=== PATIENT | male | born 1985 | race Caucasian/White ===

== ENCOUNTER 2017-07-29 19:19 | Emergency (ER) | payer OTHER ==
[2017-07-29 19:23] VITALS: BP 146/84
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
== END 2017-07-29 20:16 | disposition home or self-care (01) ==
LOC: ER 19:19
DX: S16.1XXA Strain of muscle, fascia and tendon at neck level, initial encounter (principal); R51 Headache; M54.5 Low back pain; M54.2 Cervicalgia; V43.52XA Car driver injured in collision with other type car in traffic accident, initial encounter
CPT/HCPCS: 99284

== ENCOUNTER 2019-09-24 11:50 | Emergency (ER) | payer OTHER ==
--- NOTE | 2019-09-24 13:01 | ER Document Report ---
ED Medical Screen (RME) - General Chief Complaint: Toothache Stated Complaint: TOOTHACHE Time Seen by Provider: 09/24/19 12:56 Mode of Arrival: Ambulatory Information source: Patient Notes: 34-year-old male with history of pericarditis presents emergency department with complaints of dental pain for the past 2 weeks. Patient also complains of subjective fevers and dizziness with blurred vision. Denies history of diabetes. Patient blood pressure little elevated. Denies vomiting diarrhea. I have greeted and performed a rapid initial assessment of this patient. A comprehensive ED assessment and evaluation of the patient, analysis of test results and completion of the medical decision making process will be conducted by additional ED providers. TRAVEL OUTSIDE OF THE [place] IN LAST 30 DAYS: No - Related Data Allergies/Adverse Reactions: No Known Allergies Allergy (Verified 09/24/19 12:50) Past Medical History Renal/ Medical History: Denies: Hx Peritoneal Dialysis Physical Exam - Vital signs Vitals: Temp Pulse Resp BP Pulse Ox 97.8 F 74 18 153/96 H 98 09/24/19 11:51 09/24/19 11:51 09/24/19 11:51 09/24/19 11:51 09/24/19 11:51 Course - Vital Signs Vital signs: Temp Pulse Resp BP Pulse Ox 97.8 F 74 18 153/96 H 98 09/24/19 11:51 09/24/19 11:51 09/24/19 11:51 09/24/19 11:51 09/24/19 11:51
[2019-09-24 14:00] LABS: ALBUMIN 4.9 g/dL (3.5-5.0); ALKALINE PHOSPHATASE 86 U/L (38-126); ANION GAP 11 (5-19); ASPARTATE AMINO TRANSFERASE 48 U/L (17-59); BILIRUBIN,DIRECT 0.3 mg/dL (0.0-0.4); BILIRUBIN,TOTAL 1.1 mg/dL (0.2-1.3); BLOOD UREA NITROGEN 11 mg/dL (7-20); CALCIUM 9.6 mg/dL (8.4-10.2); CARBON DIOXIDE 29 mmol/L (22-30); CHLORIDE 101 mmol/L (98-107); GLUCOSE 81 mg/dL (75-110); POTASSIUM 4.2 mmol/L (3.6-5.0); TOTAL PROTEIN 8.6 g/dL (6.3-8.2)
[2019-09-24 14:07] LABS: APPEARANCE,URINE CLEAR; BILIRUBIN,URINE NEGATIVE (NEGATIVE); COLOR,URINE YELLOW; GLUCOSE, URINE NEGATIVE (NEGATIVE); KETONES,URINE NEGATIVE (NEGATIVE); LEUKOCYTE ESTERASE,URINE NEGATIVE (NEGATIVE); NITRITE,URINE NEGATIVE (NEGATIVE); PROTEIN,URINE NEGATIVE (NEGATIVE); URINE SPECIFIC GRAVITY 1.011
[2019-09-24 14:23] LABS: ABSOLUTE EOSINOPHILS # (AUTO) 0.1 10^3/uL (0.0-0.6); ABSOLUTE LYMPHOCYTES (AUTO) 1.5 10^3/uL (0.5-4.7); ABSOLUTE MONOCYTES (AUTO) 0.6 10^3/uL (0.1-1.4); ABSOLUTE NEUT (AUTO) 4.8 10^3/uL (1.7-8.2); BASOPHILS % (AUTO) 0.3 % (0-2); EOSINOPHILS % (AUTO) 1.5 % (0-6); HEMATOCRIT 48.3 % (37.9-51.0); LYMPHOCYTES % (AUTO) 21.8 % (13-45); MEAN CORPUSCULAR HEMOGLOBIN 31.6 pg (27.0-33.4); MEAN CORPUSCULAR HGB CONC 35.2 g/dL (32.0-36.0); MEAN CORPUSCULAR VOLUME 90 fl (80-97); PLATELET COUNT 222 10^3/uL (150-450); RED BLOOD COUNT 5.38 10^6/uL (4.35-5.55); SEGMENTED NEUTROPHILS % (AUTO) 68.4 % (42-78); TOTAL CELLS COUNTED % (AUTO) 100 %
[2019-09-24] MEDS ORDERED: CEFTRIAXONE INJ 1000 MG VIAL IM ONE (14:52)
[2019-09-24 15:21] VITALS: BP 144/90
--- NOTE | 2019-09-24 17:23 | ER Document Report ---
Entered by STEPHANIE GARCIA SCRIBE 09/24/19 1445 Acting as scribe for:BILL DOTSON MD ED General - General Chief Complaint: Dental Injury Stated Complaint: TOOTHACHE Time Seen by Provider: 09/24/19 12:56 Mode of Arrival: Ambulatory Information source: Patient Notes: This 34 year old male patient presents to the emergency department today with complaints of a broken tooth with associated pain/swelling for the past x2 weeks. Patient states he has been taking ibuprofen to help his fever, swelling, and tooth pain. Patient states he has been having problems focusing his left eye and this has caused dizziness and a headache. TRAVEL OUTSIDE OF THE [place] IN LAST 30 DAYS: No - Related Data Allergies/Adverse Reactions: No Known Allergies Allergy (Verified 09/24/19 12:50) Home Medications: motrin Past Medical History - General Information source: Patient - Social History Smoking Status: Never Smoker Cigarette use (# per day): No Chew tobacco use (# tins/day): No Frequency of alcohol use: None Drug Abuse: None Lives with: Family Family History: Reviewed & Not Pertinent Patient has suicidal ideation: No Patient has homicidal ideation: No - Past Medical History Cardiac Medical History: Reports: Hx Hypertension, Other - Pericarditis Review of Systems - Review of Systems Constitutional: See HPI, Fever - subjective EENT: See HPI, Dental problem, Other - Problem with focusing left eye Cardiovascular: See HPI, Dizziness Respiratory: No symptoms reported Gastrointestinal: No symptoms reported Genitourinary: No symptoms reported Male Genitourinary: No symptoms reported Musculoskeletal: No symptoms reported Skin: No symptoms reported Hematologic/Lymphatic: No symptoms reported Neurological/Psychological: No symptoms reported -: Yes All other systems reviewed and negative Physical Exam - Vital signs Vitals: Temp Pulse Resp BP Pulse Ox 97.8 F 74 18 153/96 H 98 09/24/19 11:51 09/24/19 11:51 09/24/19 11:51 09/24/19 11:51 09/24/19 11:51 - General General appearance: Appears well, Alert - HEENT Visual acuity- Right eye: 20/30 Visual acuity- Left eye: 20/50 Visual acuity- Both eyes: 20/40 Corrective lenses worn: No External canal: Other - left sided inflammation Tympanic membrane: Serous effusion - on the left Sinus: Frontal, Tenderness Mouth/Lips: Dental fracture - Tooth #16 is fractured, Other - Gingival hyperplasia - Respiratory Respiratory status: No respiratory distress Breath sounds: Normal - Cardiovascular Rhythm: Regular Heart sounds: Normal auscultation Murmur: No - Abdominal Inspection: Normal Distension: No distension - Extremities General upper extremity: Normal inspection. No: Edema General lower extremity: Normal inspection. No: Edema - Neurological Neuro grossly intact: Yes Cognition: Normal Orientation: AAOx4 - Psychological Associated symptoms: Normal affect, Normal mood - Skin Skin Temperature: Warm Skin Moisture: Dry Skin Color: Normal Course - Vital Signs Vital signs: Temp Pulse Resp BP Pulse Ox 98.2 F 66 18 144/90 H 99 09/24/19 15:20 09/24/19 15:20 09/24/19 15:20 09/24/19 15:20 09/24/19 15:20 - Laboratory Result Diagrams: 09/24/19 13:22 09/24/19 13:22 Laboratory results interpreted by me: 09/24/19 09/24/19 13:22 13:22 Total Protein 8.6 H Urine Urobilinogen 2.0 H - EKG Interpretation by Me Additional EKG results interpreted by me: 09/24/19 17:20 12-lead EKG done at 04/04/2011 today shows a normal sinus rhythm rate of [address]-T wave changes. Discharge - Discharge Clinical Impression: Dental caries, Toothache, Gingivitis, Elevated blood pressure reading in office without diagnosis of hypertension Sinusitis Qualifiers: Sinusitis location: maxillary Chronicity: acute Condition: Stable Disposition: HOME, SELF-CARE Instructions: [facility], Toothache (H) Additional Instructions: Sinusitis You have sinusitis, an infection of the sinus cavities of the face. The sinuses are air-filled chambers which open into the inside of the nose. Bacteria and pus fill a sinus, causing pain, drainage, and fever. Sinusitis is treated with antibiotics. Often, expectorants (to thin the sinus mucous) or decongestants (to reduce swelling) are prescribed as well. Healing requires seven to 10 days. Avoid chemical fumes, pollens, dusts, and smoke (especially cigarette smoke). Keep the air humidified in your bedroom and work area and take plenty of liquids by mouth. This condition can be serious if the infection spreads. If your symptoms worsen, or if you develop severe headache, high fever, stiff neck, or a rash, you must call the doctor or return for re-evaluation. Labyrinthitis Labyrinthitis is a temporary disease of the inner ear. It's sometimes called vestibulitis. It often starts a few days after a cold or virus infection. Symptoms include vertigo (the spinning type of dizziness) or a sense of unsteadiness and nausea. The symptoms usually go away in a couple of days without any treatment. You should rest and keep your head still. The dizziness is worse if you move your head. Closing the eyes usually helps. Don't drive, work with dangerous machinery, or get up on ladders or scaffolds until a few days after the dizziness resolves. Medicine such as meclizine (Antivert, Bonine) can reduce the dizziness and nausea. Tranquilizers (such as diazepam) can suppress your sense of balance, reducing the unpleasantness of the vertigo. Call or return if you develop ear pain, loss of hearing, fever, severe vomiting, or any other new symptom. Toothache Your pain is due to dental decay. The tooth must be repaired in order for you to feel better. You will, therefore, be referred to a dentist. Severe swelling or drainage around a tooth usually means a deep dental abscess. This also requires evaluation and treatment by the dentist, but antibiotics may be prescribed while awaiting dental treatment. You should be rechecked immediately if you develop major swelling of the face, increasing pain, a lump in the jaw or gums, headache, or fever. You have dental caries and a cracked tooth. Also noted gingivitis around the cracked tooth with swelling. Definitive therapy should be with a oral surgeon or dentist. Today we will place you on antibiotics. Continue taking ibuprofen as needed for pain and swelling Prescriptions: Meclizine HCl [Antivert 25 mg Tablet] 25 mg PO TID PRN #21 tablet PRN Reason: Amoxicillin/Potassium Clav [Augmentin 500-125 Tablet] 1 tab PO TID 10 Days #30 tablet Ibuprofen [Motrin 800 mg Tablet] 800 mg PO Q8H PRN #30 tab PRN Reason: I personally performed the services described in the documentation, reviewed and edited the documentation which was dictated to the scribe in my presence, and it accurately records my words and actions.
--- NOTE | 2019-09-25 00:19 | EKG REPORT ---
SEVERITY:- NORMAL ECG - SINUS RHYTHM : Confirmed by: Ant Castrejon 25-Sep-2019 00:19:10
== END 2019-09-24 15:25 | disposition home or self-care (01) ==
LOC: ER 11:50
DX: K02.9 Dental caries, unspecified (principal); K05.10 Chronic gingivitis, plaque induced; R03.0 Elevated blood-pressure reading, without diagnosis of hypertension; J01.00 Acute maxillary sinusitis, unspecified
CPT/HCPCS: 93005; 36415; 85025; 80053; 81001; 93010; J0696; 96372; 99283